=== PATIENT | female | born 1990 | race Caucasian/White ===

== ENCOUNTER 2018-12-11 14:52 | Inpatient (IN) | payer MEDICAID, BC ==
[2018-12-11] MEDS ORDERED: OXYCODONE/ASPIRIN (4.88/325) TAB PO (19:00)
[2018-12-11] MEDS ORDERED: OXYTOCIN 30 UNITS/LR 500 ML IV (19:00)
[2018-12-11] MEDS ORDERED: BUTORPHANOL 2 MG INJ IV (19:00)
[2018-12-11] MEDS ORDERED: MISOPROSTOL 200 MCG TAB PR (19:00)
[2018-12-11] MEDS ORDERED: IBUPROFEN 600 MG TAB PO (19:00)
[2018-12-11] MEDS ORDERED: CARBOPROST 250 MCG INJ IM (19:00)
[2018-12-11] MEDS ORDERED: LIDOCAINE 1% (MPF) 30 ML INJ INJ (19:00)
[2018-12-11] MEDS ORDERED: METHYLERGONOVINE 0.2 MG INJ IM (19:00)
[2018-12-11 20:00] LABS: ADD MAN DIFF? NO
[2018-12-11] MEDS: LACTATED RINGER'S 1,000 ML IV (20:01)
[2018-12-11 20:05] LABS: WHITE BLOOD COUNT 9.4 10^3/ul (4.8-10.8)
[2018-12-11 20:05] LABS: BASOPHILS % 0.2 % (0.0-2.0); EOSINOPHILS % 0.2 % (0.0-7.0); HEMATOCRIT 38.6 % (37.0-47.0); HEMOGLOBIN 12.7 g/dl (12.0-16.0); LYMPHOCYTES # 2.1 10^3/ul (0.8-2.9); LYMPHOCYTES % 22.5 % (15.0-51.0); MEAN CORPUSCULAR HEMOGLOBIN 27.3 pg (29.0-33.0); MEAN CORPUSCULAR HGB CONC 32.9 g/dl (32.0-37.0); MEAN CORPUSCULAR VOLUME 82.8 fl (82.0-101.0); MEAN PLATELET VOLUME 11.3 fl (7.4-10.4); MONOCYTE # 0.7 10^3/ul (0.3-0.9); MONOCYTES % 7.7 % (0.0-11.0); NEUTROPHIL # 6.5 10^3/ul (1.6-7.5); NEUTROPHILS % 68.5 % (39.0-77.0); PLATELET COUNT 228 10^3/UL (140-415); RED BLOOD COUNT 4.66 10^6/ul (4.20-5.40); RED CELL DISTRIBUTION WIDTH 14.3 % (11.5-14.5)
[2018-12-11 20:25] LABS: PROTIME 12.3 Sec (11.9-14.9)
[2018-12-11 20:26] LABS: PARTIAL THROMBOPLASTIN TIME 30.3 Sec (23.0-35.0)
[2018-12-11 20:57] LABS: HEPATITIS B SURFACE ANTIGEN NEGATIVE (NEGATIVE)
[2018-12-11] MEDS: MISOPROSTOL 50 MCG CAPSULE PO (21:44)
[2018-12-12] MEDS: LACTATED RINGER'S 1,000 ML IV ×5 (00:16→18:16)
[2018-12-12] MEDS: MISOPROSTOL 50 MCG CAPSULE PO (02:41)
[2018-12-12] MEDS ORDERED: FENTAnyl 2MCG/ML-ROPIV 0.2% 100 ML (09:54)
[2018-12-12] MEDS ORDERED: DIPHENHYDRAMINE 50 MG INJ IV (10:00)
[2018-12-12] MEDS: LACTATED RINGER'S 500 ML IV (10:00)
[2018-12-12] MEDS ORDERED: ONDANSETRON 4 MG INJ IV ×2 (10:00→22:30)
[2018-12-12] MEDS ORDERED: NALOXONE (0.4 MG/ML) INJ IV (10:00)
[2018-12-12] MEDS: OXYTOCIN 30 UNITS/LR 500 ML IV ×4 (11:20→19:52)
[2018-12-12 17:01] LABS: RAPID PLASMA REAGIN NONREACTIVE (NR)
[2018-12-12] MEDS: FENTAnyl 2MCG/ML-ROPIV 0.2% 100 ML BAG EPI (17:18)
[2018-12-12] MEDS ORDERED: MISOPROSTOL 200 MCG TAB PR (22:30)
[2018-12-12] MEDS ORDERED: METHYLERGONOVINE 0.2 MG INJ IM (22:30)
[2018-12-12] MEDS ORDERED: HYDROCODONE/APAP (5/325) TAB PO (22:30)
[2018-12-12] MEDS ORDERED: ZOLPIDEM 5 MG TAB PO (22:30)
[2018-12-12] MEDS ORDERED: OXYTOCIN 30 UNITS/LR 500 ML IV (22:30)
[2018-12-12] MEDS ORDERED: NACL 0.9% 3 ML SYG IV (22:30)
[2018-12-12] MEDS ORDERED: ACETAMINOPHEN 325 MG TAB PO (22:30)
[2018-12-12] MEDS ORDERED: DIPHENHYDRAMINE 25 MG CAP PO (22:30)
[2018-12-12] MEDS ORDERED: CARBOPROST 250 MCG INJ IM (22:30)
[2018-12-12] MEDS: IBUPROFEN 800 MG TAB PO (23:20)
[2018-12-12] MEDS: WITCH HAZEL/GLYCERIN PAD PR (23:21)
[2018-12-12] MEDS: BENZOCAINE 20% 56 ML SPRAY TOP (23:21)
[2018-12-13] MEDS: OXYTOCIN 30 UNITS/LR 500 ML IV (00:15)
[2018-12-13 05:06] LABS: ADD MAN DIFF? NO
[2018-12-13 05:14] LABS: BASOPHILS % 0.3 % (0.0-2.0); EOSINOPHILS % 0.3 % (0.0-7.0); HEMATOCRIT 34.1 % (37.0-47.0); HEMOGLOBIN 11.3 g/dl (12.0-16.0); LYMPHOCYTES # 2.1 10^3/ul (0.8-2.9); LYMPHOCYTES % 18.4 % (15.0-51.0); MEAN CORPUSCULAR HEMOGLOBIN 27.5 pg (29.0-33.0); MEAN CORPUSCULAR HGB CONC 33.1 g/dl (32.0-37.0); MEAN PLATELET VOLUME 11.8 fl (7.4-10.4); MONOCYTES % 8.6 % (0.0-11.0); NEUTROPHILS % 71.9 % (39.0-77.0); PLATELET COUNT 220 10^3/UL (140-415); RED BLOOD COUNT 4.11 10^6/ul (4.20-5.40); RED CELL DISTRIBUTION WIDTH 14.4 % (11.5-14.5)
[2018-12-13 05:14] LABS: WHITE BLOOD COUNT 11.2 10^3/ul (4.8-10.8)
[2018-12-13] MEDS: IBUPROFEN 800 MG TAB PO ×4 (05:26→23:52)
[2018-12-13] MEDS: SENNA/DOCUSATE NA (8.6MG/50MG) TAB PO ×2 (09:48→21:55)
[2018-12-13] MEDS: MISOPROSTOL 50 MCG CAPSULE PO ×2 (09:56)
[2018-12-13] MEDS: LANOLIN HPA 1 PKT TOP (12:03)
[2018-12-14] MEDS: IBUPROFEN 800 MG TAB PO ×2 (05:30→11:54)
[2018-12-14] MEDS: VARICELLA VACCINE LIVE/PF 1,350 UNIT/0.5 ML ML SC* (09:00)
[2018-12-14] MEDS: MEASLES,MUMPS,RUBELLA VACCINE INJ SC* (09:00)
[2018-12-14] MEDS: SENNA/DOCUSATE NA (8.6MG/50MG) TAB PO (09:45)
[2018-12-14] MEDS: DIPHTH/TET/ACEL PERTUSS (ADULT) 0.5 ML VIAL IM* (09:46)
== END 2018-12-14 15:14 | disposition home or self-care (01) | DRG 807 ==
LOC: OBT 14:52 → L-D 15:09 → OBT 18:53 → L-D 18:53 → MS1 12-12 21:19
PROVIDERS: Obstetrics & Gynecology
PROC: 10E0XZZ Delivery of Products of Conception, External Approach (ICD-10-PCS; principal; 2018-12-12)
PROC: 0HQ9XZZ Repair Perineum Skin, External Approach (ICD-10-PCS; 2018-12-12)
DX: O70.0 First degree perineal laceration during delivery (principal); Z37.0 Single live birth; Z3A.40 40 weeks gestation of pregnancy
CPT/HCPCS: 62322; 76815; 76818; 85025; 85610; 85730; 86592; 86850; 86900; 86901; 87340; 90715; 90716